=== PATIENT | male | born 1970 | race Caucasian/White ===

== ENCOUNTER 2022-06-06 02:31 | Emergency (ER) | payer SELFPAY ==
[2022-06-06] MEDS ORDERED: Nitroglycerin 0.4 MG Tab.SL SL ONE (02:42)
[2022-06-06] MEDS ORDERED: Aspirin 325 MG Tab PO ONE (02:42)
[2022-06-06] MEDS ORDERED: Tenecteplase 50 MG Kit IV ONE ×3 (02:47→02:52)
[2022-06-06] MEDS ORDERED: Clopidogrel 75 MG Tab PO ONE (02:48)
[2022-06-06] MEDS ORDERED: Tenecteplase 50 MG Kit ONE (02:51)
[2022-06-06] MEDS: Heparin Sodium 5,000 Units/ML Vial IVPUSH ONE ×2 (02:54→03:01)
[2022-06-06] MEDS ORDERED: Heparin Sodium 5,000 Units/ML Vial IVPUSH ONE (03:00)
[2022-06-06] MEDS ORDERED: Morphine 4 MG/ML VIAL ONE (03:05)
[2022-06-06] MEDS ORDERED: Morphine 4 MG/ML VIAL IVPUSH ONE ×2 (03:06→03:07)
[2022-06-06] MEDS ORDERED: Sodium Chloride 0.9% 1,000 ML IV STA (03:10)
[2022-06-06] MEDS ORDERED: Heparin Sodium/0.45% NaCl 500 ML ONE (03:13)
[2022-06-06 03:15] LABS: CARBON DIOXIDE,CO2 28.3 mmol/L (21.0-32.0); POTASSIUM,K 3.6 mmol/L (3.5-5.1)
[2022-06-06] MEDS ORDERED: Heparin Sodium/0.45% NaCl 500 ML IV SCH (03:30)
== END 2022-06-06 04:00 ==
LOC: MW.ED 02:31
DX: I21.3 ST elevation (STEMI) myocardial infarction of unspecified site (principal); Z20.822 Contact with and (suspected) exposure to COVID-19
CPT/HCPCS: 36415; 71045; 80053; 84484; 85025; 85730; 87635; 92977; 93005; 96365; 96375; 96376; 99285; A9270; J1644; J2270; J3101; J7030; 93010; 99291; U0002